=== PATIENT | male | born 1995 | race American Indian/Alaskan Native ===

== ENCOUNTER 2019-05-12 22:38 | Emergency (ER) | payer OTHER, BC ==
--- NOTE | 2019-05-13 00:23 | XRay Report ---
Lumbar spine 3 views INDICATION: Low back pain following injury IMPRESSION: No fracture or subluxation identified. Signer Name: Jose Napoles MD Signed: 05/13/2019 12:18 AM Workstation Name: [id number]
[2019-05-13] MEDS ORDERED: TORADOL IM ONE (01:39)
[2019-05-13] MEDS ORDERED: DECADRON IM ONE (01:39)
--- NOTE | 2019-05-13 01:40 | Emergency Department Report ---
ED Back Pain/Injury HPI - General Chief Complaint: Back Pain/Injury Stated Complaint: BACK PAIN Time Seen by Provider: 05/13/19 01:27 Source: patient Limitations: No Limitations - History of Present Illness Initial Comments: 24-year-old male with history of chronic intermittent low back pain presents to ED with exacerbation of his lower back pain. Patient states he was lifting a heavy mop bucket earlier today, which she believes triggered his pain. He states pain is located across the lower back and radiating down into the right leg. Patient reports being pain in the past as well. He denies any numbness or weakness. Denies any fever, urinary or bowel incontinence or retention. MD Complaint: back pain -: This afternoon Similar Symptoms Previously: Yes Radiation: right leg Severity: moderate Quality: sharp, aching Consistency: intermittent Improves With: immobilization Worsens With: movement, walking Context: while lifting Associated Symptoms: denies: weakness, numbness, difficulty walking, difficulty urinating, incontinence, fever/chills, abdominal pain, nausea/vomiting - Related Data Previous Rx's Medication Instructions Recorded Last Taken Type Naproxen [Naprosyn] 500 mg PO BID #20 tablet 05/13/19 Unknown Rx methOCARBAMOL [Robaxin TAB] 500 mg PO Q8HR PRN #20 tablet 05/13/19 Unknown Rx predniSONE [Deltasone] 50 mg PO QDAY #5 tab 05/13/19 Unknown Rx Allergies Allergy/AdvReac Type Severity Reaction Status Date / Time No Known Allergies Allergy Unverified 05/12/19 23:48 ED Review of Systems ROS: Stated complaint: BACK PAIN Other details as noted in HPI Comment: All other systems reviewed and negative Constitutional: denies: chills, fever Genitourinary: other (denies retention or incontinence) Musculoskeletal: as per HPI Neurological: denies: weakness, numbness, paresthesias ED Past Medical Hx - Past Medical History Previous Medical History?: No - Surgical History Past Surgical History?: No - Social History Smoking Status: Current Every Day Smoker Substance Use Type: Alcohol - Medications Home Medications: Home Medications Medication Instructions Recorded Confirmed Last Taken Type Naproxen [Naprosyn] 500 mg PO BID #20 tablet 05/13/19 Unknown Rx methOCARBAMOL [Robaxin TAB] 500 mg PO Q8HR PRN #20 tablet 05/13/19 Unknown Rx predniSONE [Deltasone] 50 mg PO QDAY #5 tab 05/13/19 Unknown Rx ED Physical Exam - General Limitations: No Limitations General appearance: alert, in no apparent distress - Head Head exam: Present: atraumatic, normocephalic - Eye Eye exam: Present: normal appearance - ENT ENT exam: Present: mucous membranes moist - Neck Neck exam: Present: normal inspection - Respiratory Respiratory exam: Present: normal lung sounds bilaterally. Absent: respiratory distress - Cardiovascular Cardiovascular Exam: Present: regular rate, normal rhythm - GI/Abdominal GI/Abdominal exam: Present: soft. Absent: distended, tenderness - Extremities Exam Extremities exam: Present: normal inspection - Back Exam Back exam: Present: paraspinal tenderness (bilateral lower lumbar) - Neurological Exam Neurological exam: Present: alert, oriented X3. Absent: motor sensory deficit - Psychiatric Psychiatric exam: Present: normal affect, normal mood - Skin Skin exam: Present: warm, dry, intact, normal color ED Course Vital Signs 05/12/19 05/13/19 05/13/19 23:48 02:07 02:08 Temperature 98.4 F Pulse Rate 77 70 Respiratory 16 16 16 Rate Blood Pressure 136/75 Blood Pressure 131/75 [Right] O2 Sat by Pulse 99 99 Oximetry ED Medical Decision Making - Radiology Data Radiology results: report reviewed, image reviewed - Differential Diagnosis sciatica Critical care attestation.: If time is entered above; I have spent that time in minutes in the direct care of this critically ill patient, excluding procedure time. ED Disposition Clinical Impression: Lumbar radiculopathy, right Disposition: DC-01 TO HOME OR SELFCARE Is pt being admited?: No Condition: Stable Instructions: Lumbar Radiculopathy (ED) Prescriptions: predniSONE [Deltasone] 50 mg PO QDAY #5 tab Naproxen [Naprosyn] 500 mg PO BID #20 tablet methOCARBAMOL [Robaxin TAB] 500 mg PO Q8HR PRN #20 tablet PRN Reason: Muscle Spasm Referrals: LARISSA YOUNG MD [Primary Care Provider] - 3-5 Days CASSIUS TOUSSAINT MD [Staff Physician] - 3-5 Days Time of Disposition: 01:40
[2019-05-13] MEDS ORDERED: TORADOL ONE (01:50)
[2019-05-13 02:11] VITALS: BP 131/75
== END 2019-05-13 02:08 | disposition home or self-care (01) ==
LOC: ED 22:38
DX: M54.16 Radiculopathy, lumbar region (principal); F17.200 Nicotine dependence, unspecified, uncomplicated; Z79.899 Other long term (current) drug therapy
CPT/HCPCS: 72100; 96372; 99283; J1100; J1885